=== PATIENT | female | born 1990 | race Caucasian/White ===

== ENCOUNTER 2018-12-09 04:54 | Emergency (ER) | payer MEDICAID ==
[~2018-12-09] VITALS: Ht 170.2 cm; Wt 63.5 kg
[2018-12-09 04:59] VITALS: BP 145/88
--- NOTE | 2018-12-09 05:03 | NUR ---
PT TAKEN TO BED 10
--- NOTE | 2018-12-09 05:13 | NUR ---
28 y/o f presented to ED with c/o painful bug bite. VSS. AAOx4. Denies PHM. NKA. Absess noted to L under arm. C/o of 10/10 pain. Site tender touch. Skin normal for ethinicity. Warm to touch. Per pt was bitten by a spider x1 day ago and pain was unbearable. notified. Will continue to monitor.
--- NOTE | 2018-12-09 07:11 | NUR ---
REPORT RECIEVED FROM QUEENIE/RN, CYNTHIA, WILL CONTINOR TO MONITOR PT.
--- NOTE | 2018-12-09 07:48 | NUR ---
DR WILSON AT BEDSIDE
[2018-12-09] MEDS ORDERED: diphenhydrAMINE 50 MG/ML VIAL IM ONE (07:55)
[2018-12-09] MEDS ORDERED: CLINDAMYCIN 600 MG/4 ML VIAL IM ONE (07:55)
[2018-12-09] MEDS ORDERED: KETOROLAC 60 MG/2 ML VIAL IM ONE (07:55)
[2018-12-09] MEDS ORDERED: DEXAMETHASONE 10 MG/ML VIAL IM ONE (07:55)
[2018-12-09 08:58] VITALS: BP 121/68
--- NOTE | 2018-12-09 08:58 | NUR ---
Patient discharged with v/s stable. Written and verbal after care instructions given and explained. Patient alert, oriented and verbalized understanding of instructions. Ambulatory with steady gait. All questions addressed prior to discharge. ID band removed. Patient advised to follow up with PMD. Rx of NAPROSYN, CLINDAMYCIN given. Patient educated on indication of medication including possible reaction and side effects. Opportunity to ask questions provided and answered.
== END 2018-12-09 08:58 | disposition home or self-care (01) ==
LOC: MED 04:54
DX: L02.412 Cutaneous abscess of left axilla (principal)
CPT/HCPCS: 81025; 96372; 99283; J1100; J1200; J1885; J3490